=== PATIENT | male | born 1990 | race Hispanic/Latino ===

== ENCOUNTER 2018-04-26 18:39 | Emergency (ER) | payer SELFPAY ==
[~2018-04-26 18:39] MED LIST: Iopamidol 370 76% 100 ML VIAL ONE; Sodium Chloride 0.9% 1,000 ML BAG ONE
[2018-04-26 19:16] LABS: Bilirubin Small (Negative); Blood, Urine Negative (Negative); Glucose, Urine (Dipstick) Negative (Negative); Leukocyte Negative (Negative); Nitrite Negative (Negative); Protein, Urine (Dipstick) 100 mg/dL (Neg-Trace); pH, Urine 8.5 (5.0-9.0)
[2018-04-26 19:18] LABS: Clarity Hazy (Clear)
[2018-04-26 19:19] LABS: Bacteria/HPF 2+ HPF (None Seen); RBC/HPF 0-3 HPF (0-3); WBC/HPF 0-3 HPF (0-3)
[2018-04-26] MEDS ORDERED: Acetaminophen 500 MG TAB ONE (19:42)
[2018-04-26] MEDS ORDERED: Ketorolac Tromethamine 30 MG/ML VIAL ONE (21:08)
[2018-04-26 21:34] LABS: ALT (SGPT) 69 U/L (8-55); AST (SGOT) 28 U/L (5-34); Albumin 4.3 g/dL (3.5-5.0); Alkaline Phosphatase 68 U/L (40-150); Anion Gap 17 mmol/L (10-20); BUN (Urea Nitrogen) 6 mg/dL (8.9-20.6); Calc. Creatinine Clearance 0 mL/min (70-130); Calcium 9.1 mg/dL (7.8-10.44); Carbon Dioxide 24 mmol/L (22-29); Chloride 100 mmol/L (98-107); Estimated GFR-MDRD Greater than 90; Globulin 3.4 g/dL (2.4-3.5); Glucose 112 mg/dL (70-105); Potassium 3.3 mmol/L (3.5-5.1); Protein, Total 7.7 g/dL (6.0-8.3); Sodium 138 mmol/L (136-145)
[2018-04-26 21:39] LABS: Hemoglobin 13.7 g/dL (14.0-18.0); MDiff Complete? YES; Mean Corpuscular HGB CONC 33.4 g/dL (32.0-36.0); Mean Corpuscular Hemoglobin 27.8 pg (27.0-31.0); Mean Corpuscular Volume 83.2 fL (78.0-98.0); Mean Platelet Volume 7.5 fL (7.4-10.4); Neutrophil 75 % (42-75); Platelet Count 261 thou/uL (130-400); RBC Distribution Width 11.5 % (11.5-14.5); Red Blood Cell (RBC) Count 4.93 mill/uL (4.70-6.10); White Blood Cell (WBC) Count 13.6 thou/uL (4.8-10.8)
[2018-04-26] MEDS ORDERED: Ondansetron HCl/PF 4 MG/2 ML Vial ONE (21:39)
[2018-04-26 21:40] LABS: Band 7 % (5-11); Lymphocytes 12 % (21-51); Monocytes 6 % (0-10)
--- NOTE | 2018-04-26 23:07 | CT ---
CT ABDOMEN AND PELVIS 04/26/18 COMPARISON: None. HISTORY: Right lower quadrant pain and anorexia. TECHNIQUE: Serial axial CT imaging obtained at 5 mm intervals from the lung bases through the pubic symphysis wi th intravenous and oral contrast. Coronal reformatted imaging obtained. FINDINGS: The imaged lung bases are unremarkable. No free intraperitoneal air is seen within the upper abdomen. No significant free fluid is noted. The hepatic parenchyma is diffusely hypodense, evidence of steat osis. The gallbladder and spleen are grossly unremarkable. The pancreas, adrenal glands, and kidneys appear within normal limits. There is colonic wall thickening and pericolonic fat stranding in the region of the sigmoid colon, be st seen on axial image 79, with a thick walled segment of colon in this region measuring 7-8 cm in le ngth. There is a focus of extraluminal gas adjacent to the inflamed sigmoid colon suggesting a focal area of perforation, likely on the basis of diverticulitis although there is not significant divertic ular disease noted and thus this may signify a single perforated and inflamed diverticulum. The infla mmatory change abuts the appendix which appears secondarily mildly inflamed distally. No evidence for an abscess is seen. There is no evidence for bowel obstruction. No enlarged nodes are seen in the abdomen or pelvis. The vascular structures appear patent. No worris ome lytic or blastic bone lesions are noted. IMPRESSION: Inflammatory fat stranding and wall thickening in the region of sigmoid colon with adjacent extralumi nal gas suggesting focal sigmoid colitis with associated perforation. There is mild secondary inflamm atory change involving the appendix but this process appears to be centered within the colon. No evid ence for drainable abscess. Surgical consultation advised. Results called to Dr. Blas at 10:55 p.m., 04/26/18. Code CR POS: [facility]
[2018-04-26] MEDS ORDERED: Morphine 10 MG/ML VIAL ONE (23:10)
== END 2018-04-26 23:59 | disposition short-term general hospital (02) ==
LOC: MADERS 18:39
DX: K57.20 Diverticulitis of large intestine with perforation and abscess without bleeding (principal); G89.29 Other chronic pain; Z79.899 Other long term (current) drug therapy
CPT/HCPCS: 36415; 74177; 80053; 81003; 81015; 82150; 83605; 85025; 87086; 96361; 96365; 96368; 96375; J1885; J1956; J2270; J2405; J3370; J7050

== ENCOUNTER 2018-08-09 15:16 | Emergency (ER) | payer SELFPAY ==
[~2018-08-09 15:16] MED LIST changes: -Sodium Chloride 0.9% 1,000 ML BAG ONE
[2018-08-09] MEDS ORDERED: Ondansetron PF 4 MG/2 ML Vial ONE (15:40)
[2018-08-09] MEDS ORDERED: Morphine 4 MG/ML VIAL ONE ×2 (15:40→18:26)
[2018-08-09] MEDS ORDERED: Sodium Chloride 0.9% 1,000 ML BAG ONE ×2 (15:50→18:42)
[2018-08-09 15:59] LABS: #Basophils 0.1 thou/uL (0.0-0.2); #Lymphocytes 1.5 thou/uL (1.20-3.40); #Monocytes 0.5 thou/uL (0.11-0.59); #Neutrophils 15.2 thou/uL (1.40-6.50); %Basophils 0.4 % (0.0-1.0); %Eosinophils 0.1 % (0.0-10.0); %Lymphocytes 8.6 % (21.0-51.0); %Monocytes 2.9 % (0.0-10.0); Hemoglobin 15.1 g/dL (14.0-18.0); Mean Corpuscular HGB CONC 31.8 g/dL (32.0-36.0); Mean Corpuscular Hemoglobin 27.7 pg (27.0-31.0); Platelet Count 361 thou/uL (130-400); Red Blood Cell (RBC) Count 5.45 mill/uL (4.70-6.10); White Blood Cell (WBC) Count 17.2 thou/uL (4.8-10.8)
[2018-08-09 16:15] LABS: ALT (SGPT) 57 U/L (8-55); AST (SGOT) 23 U/L (5-34); Albumin 4.4 g/dL (3.5-5.0); Alkaline Phosphatase 70 U/L (40-150); Anion Gap 17 mmol/L (10-20); BUN (Urea Nitrogen) 12 mg/dL (8.9-20.6); Bilirubin, Total 0.4 mg/dL (0.2-1.2); Calc. Creatinine Clearance 0 mL/min (70-130); Calcium 9.2 mg/dL (7.8-10.44); Carbon Dioxide 23 mmol/L (22-29); Chloride 107 mmol/L (98-107); Estimated GFR-MDRD Greater than 90; Globulin 3.1 g/dL (2.4-3.5); Glucose 112 mg/dL (70-105); Potassium 3.7 mmol/L (3.5-5.1); Protein, Total 7.5 g/dL (6.0-8.3); Sodium 143 mmol/L (136-145)
[2018-08-09 16:43] LABS: Bilirubin Negative (Negative); Blood, Urine Negative (Negative); Clarity Clear (Clear); Glucose, Urine (Dipstick) Negative (Negative); Leukocyte Negative (Negative); Nitrite Negative (Negative); Protein, Urine (Dipstick) Trace mg/dL (Neg-Trace); Specific Gravity, Urine 1.024 (1.002-1.036); Urobilinogen 0.2 mg/dL (0.2-1.0)
[2018-08-09] MEDS ORDERED: Piperacillin/Tazobactam 3.375 GM VIAL ONE (18:16)
[2018-08-09] MEDS ORDERED: Sodium Chloride 0.9% 100 ML BAG ONE (18:24)
--- NOTE | 2018-08-09 19:37 | CT ---
CT ABDOMEN AND PELVIS WITH IV CONTRAST: Date: 08-09-18 History: Abdominal pain, elevated white blood cell count. History of diverticulitis. Comparison: 06-25-18, 04-26-18 FINDINGS: Again noted is colonic diverticulosis with thickening involving the portions of the sigmoid colon wit h prominent adjacent pericolonic inflammatory changes. Findings are again most likely attributable to diverticulitis. There are foci of free intraperitoneal gas suggesting microperforation. Patient did have areas of micro perforation on prior exams although slightly more prominent on today's exam. The appendix is in the region of the prominent inflammatory changes and thickening of the sigmoid colon a nd is not well evaluated. Contrast is not seen within the appendix to adequately evaluate the appendi x. However, the inflammatory change in the right lower quadrant are felt to most likely be attributab le to the diverticulitis. There is no fluid collection seen to suggest an abscess at this time. There is bibasilar atelectasis. The liver, spleen, pancreas, bilateral adrenal glands, kidneys, abdominal aorta and opacified small b owel as well as urinary bladder demonstrate a normal CT appearance. No other interval change from sharan or exam. IMPRESSION: 1. Diverticulitis involving the sigmoid colon with associated microperforation. Prominent pericolonic inflammatory changes and fluid are seen involving the sigmoid colon which extend into the right lowe r quadrant. The appendix is not well evaluated. The most proximal appendix is able to be identified a nd is normal in caliber. The remainder of the appendix is mostly obscured due to unopacified structur es and adjacent prominent inflammatory changes. However, findings are most likely attributable to div erticulitis as opposed to appendicitis on this exam. 2. No fluid collection is seen to suggest an abscess. 3. Above findings discussed with Dr. Gunter in the Emergency Department on 08-09-18 at 1814 hours. POS: [facility]
== END 2018-08-09 18:55 | disposition short-term general hospital (02) ==
LOC: MADERS 15:16
DX: K57.20 Diverticulitis of large intestine with perforation and abscess without bleeding (principal)
CPT/HCPCS: 74177; 80053; 81003; 83605; 85025; 96365; 96375; 96376; J2270; J2405; J2543; J7050